=== PATIENT | male | born 1990 | race Caucasian/White ===

== ENCOUNTER 2017-02-08 18:46 | Emergency (ER) | payer OTHER ==
[2017-02-08] MEDS ORDERED: PREDNISONE 20 MG TABLET PO ONE (19:47)
[2017-02-08] MEDS ORDERED: ALBUTEROL SULFATE 0.083% NEB 2.5 MG/3 ML AMPUL NEB ONE (19:47)
--- NOTE | 2017-02-08 19:56 | ER Document Report ---
HPI - HPI Patient complains to provider of: asthma Onset: Other - 68 weeks Onset/Duration: Persistent, Waxing and waning Quality of pain: No pain Pain Level: Denies Context: 26-year-old nonsmoking male complaining of waking up at night wheezing and wheezing periodically throughout the day that inhaled bronchodilators helps. He feels tightness in the chest during this. He has a history of asthma in the [facility] will not treat it. No shortness of breath. No fever or chills. No nausea vomiting or diarrhea. No abdominal pain. Associated Symptoms: None Exacerbated by: Denies Relieved by: Denies Similar symptoms previously: Yes Recently seen / treated by doctor: No - ROS ROS below otherwise negative: Yes Systems Reviewed and Negative: Yes All other systems reviewed and negative - DERM Skin Color: Normal Past Medical History - General Information source: Patient - Social History Smoking Status: Never Smoker Frequency of alcohol use: None Drug Abuse: None Lives with: Spouse/Significant other Family History: Reviewed & Not Pertinent Patient has suicidal ideation: No Patient has homicidal ideation: No Pulmonary Medical History: Reports: Hx Asthma Renal/ Medical History: Denies: Hx Peritoneal Dialysis Past Surgical History: Reports: Hx Herniorrhaphy - Bilateral as a child Vertical Provider Document - CONSTITUTIONAL Agree With Documented VS: Yes Exam Limitations: No Limitations - INFECTION CONTROL TRAVEL OUTSIDE OF THE [place] IN LAST 30 DAYS: No - HEENT HEENT: Normal ENT Exam, Normocephalic, PERRLA. negative: Conjuctival Injection , Pharyngeal Erythema, Tympanic Membrane Red - NECK Neck: Supple - RESPIRATORY Respiratory: Breath Sounds Normal, No Respiratory Distress, Chest Non-Tender, Other - Long expiratory phase bilateral. negative: Wheezing O2 Sat by Pulse Oximetry: 99 - CARDIOVASCULAR Cardiovascular: Regular Rate, Regular Rhythm - GI/ABDOMEN Gastrointestinal: Abdomen Soft, Abdomen Non-Tender, No Organomegaly - MUSCULOSKELETAL/EXTREMETIES Musculoskeletal/Extremeties: SUSAN MENCHACA - NEURO Level of Consciousness: Awake, Alert, Appropriate - DERM Integumentary: Warm, Dry, No Rash Course - Re-evaluation Re-evalutation: 02/08/17 20:57 feels better after the nebulizer, chest x-ray is negative, lungs remain clear but he states he can breathe easier. - Vital Signs Vital signs: Temp Pulse Resp BP Pulse Ox 98.7 F 96 16 139/86 H 99 02/08/17 18:48 02/08/17 18:48 02/08/17 18:48 02/08/17 18:48 02/08/17 18:48 Discharge - Discharge Clinical Impression: Asthma Qualifiers: Asthma severity: mild persistent Asthma complication type: uncomplicated Qualified Code(s): J45.30 - Mild persistent asthma, uncomplicated Condition: Good Instructions: Asthma ([facility]), Steroid Medication, Inhaled Bronchodilators ([facility]) Additional Instructions: See the [place] doctor for follow-up Return to the emergency room if worse Take the prednisone until it's gone Use the albuterol metered-dose inhaler Please complete the patient satisfaction survey if you get one, and return it.. If you do not receive a survey, then you can go to the [facility] website, [email or web address] and place your comments about your very good care. Thank you very much. It was a pleasure being your medical provider today. Prescriptions: Albuterol Sulfate [Ventolin 0.083% Neb 2.5 mg/3 mL Ampul] 2.5 mg NEB Q3HP PRN # 25 vial PRN Reason: Albuterol Sulfate [Proair HFA Inhalation Aerosol 8.5 gm MDI] 2 puff IH Q3HP PRN #1 [email or web address] PRN Reason: Nebulizer [Lc Plus] 1 each MC Q4HP PRN #1 kit PRN Reason: Prednisone [Deltasone 10 mg Tablet] 10 mg PO ASDIR PRN #21 tablet PRN Reason:
[2017-02-08] MEDS ORDERED: ALBUTEROL SULFATE HFA (90 MCG/PUFF) 8 GM MDI (1 MDI/ER DISP) IH PRN (20:53)
[2017-02-08 21:17] VITALS: BP 127/74
== END 2017-02-08 21:04 | disposition home or self-care (01) ==
LOC: ER 18:46
DX: J45.30 Mild persistent asthma, uncomplicated (principal); R07.89 Other chest pain
CPT/HCPCS: 94640; 99284; 71020; J7512; J3490